=== PATIENT | female | born 2000 | race Caucasian/White ===

== ENCOUNTER 2022-10-22 19:13 | Emergency (ER) | payer OTHER, BC ==
[~2022-10-22] VITALS: Ht 167.6 cm; Wt 101.4 kg
[2022-10-22 19:29] VITALS: BP 150/100
[2022-10-22 20:04] LABS: URINE HCG NEGATIVE (NEG)
[2022-10-22 20:27] LABS: CLARITY,URINE SLIGHTLY CLOUDY (Clear); COLOR,URINE YELLOW (Yellow); GLUCOSE, URINE NEGATIVE (Neg); KETONES,URINE TRACE mg/dl (Neg); LEUKOCYTE ESTERASE ,URINE SMALL (Neg); NITRITES, URINE NEGATIVE (Neg); OCCULT BLOOD,URINE SMALL (Neg); PROTEIN,URINE 30 mg/dl (Neg); UROBILINOGEN,URINE 0.2 E.U/dL (0.2-1.0)
[2022-10-22 20:34] LABS: UA COLLECTION TYPE CLN CATCH MIDSTREAM
[2022-10-22 20:37] LABS: AMORPHOUS PHOSPHATES 1+; BACTERIA,URINE 2+ /HPF (Neg); MUCUS STRANDS FEW /LPF (Neg); SQUAMOUS EPITHELIAL CELL,UR FEW /LPF (FEW)
[2022-10-22 20:38] LABS: YEAST FEW /HPF (NEGATIVE)
[2022-10-22] MEDS ORDERED: CEPH500C81 PO (22:03)
[2022-10-22] MEDS ORDERED: cephalexin 500mg capsule PO ONE (22:05)
== END 2022-10-22 22:13 | disposition home or self-care (01) ==
LOC: ER 19:14
DX: N39.0 Urinary tract infection, site not specified (principal)
CPT/HCPCS: 81001; 81025; 87088; 99283